=== PATIENT | male | born 1955 | race Caucasian/White ===

== ENCOUNTER → 2016-06-25 | Outpatient (CLI) | payer BC ==
[~2016-06-25] MED LIST: CPAP INH; NORCO 5-325 TA1 EACH PO; PRED FORTE 1%5 ML OPHTH
== END | disposition disaster alternative care site (69) ==
LOC: GRAD 08:20
DX: R10.9 Unspecified abdominal pain (principal); K82.8 Other specified diseases of gallbladder; K76.0 Fatty (change of) liver, not elsewhere classified; K86.89 Other specified diseases of pancreas

== ENCOUNTER → 2016-07-13 | Day surgery (SDC) | payer BC ==
[~2016-07-13] VITALS: Ht 175.3 cm; Wt 88.9 kg
--- NOTE | ~2016-07-13 | OR ---
PATIENT'S NAME: PETE [facility]AN [facility] AGE: 61 Y [address] ROOM: [place] [address] [place] [facility] [place]: 07/13/2016 OR/Procedure Report DISCHARGE DATE: FAMILY PHYSICIAN: Chavez Montano MD ATTENDING PHYSICIAN: Gary Childers SURGEON: Gary Childers MD PHILOSOPHY LECTURER: Mini Reynoso PA-C DATE OF PROCEDURE: 07/13/2016 PREOPERATIVE DIAGNOSIS: Cholelithiasis with chronic cholecystitis. POSTOPERATIVE DIAGNOSIS: Cholelithiasis with chronic cholecystitis. PROCEDURE PERFORMED: Robotic-assisted laparoscopic cholecystectomy. ANESTHESIA: General endotracheal. ESTIMATED BLOOD LOSS: Less than 10 mL. SPECIMEN: Gallbladder. REASON/INDICATION FOR PROCEDURE: The patient is a 61-year-old gentleman who recently presented with some fairly constant discomfort along the right side of his abdomen. He was found to have cholelithiasis with a very thick walled gallbladder. We discussed the risks and benefits of surgery. He elected to proceed with cholecystectomy. FINDINGS: The patient had chronic fatty infiltration of the gallbladder wall, some small stones were identified. The procedure was uneventful. PROCEDURE IN DETAIL: The patient was taken to the operating suite and placed in the supine position. After general endotracheal anesthesia was obtained, the abdomen was prepped with ChloraPrep and sterilely draped. Marcaine was infiltrated into the incision sites. A 1 cm incision was made below the umbilicus to stay away from his previous hernia repair. The fascia was then grasped and elevated, and a Veress needle was used to obtain a pneumoperitoneum. An 8-mm robotic trocar was then advanced across the abdominal wall. Next, three other 8-mm robotic trocars were placed under direct visualization. The robot was then docked to the trocars and centered on the gallbladder. The gallbladder was noted to be quite thick walled with considerable fatty infiltration. We dissected through the neck area of the gallbladder. The cystic artery was initially identified and stapled before dividing it with the cautery. We then skeletonized up the cystic duct that was normal in size. Hem-o-Eugenio clips were placed proximally and distally on the gallbladder and it was then transected with scissors. The gallbladder was PATIENT'S NAME: PETE IVAN [facility] AGE: 61 Y [address] ROOM: [place], [place] [address] [place] [facility] [place]: 07/13/2016 OR/Procedure Report DISCHARGE DATE: FAMILY PHYSICIAN: Chavez Montano MD ATTENDING PHYSICIAN: Gary Childers then used to mobilize the gallbladder free of the liver bed. Once fully mobilized, the gallbladder was removed from the umbilical opening. There were no signs of any ongoing bleeding or bile leak. The abdomen was scanned. No other obvious abnormalities were seen. He did have some adhesions up to the midline from his previous umbilical hernia repair. The trocars were all withdrawn and the pneumoperitoneum was evacuated. The fascia at the umbilicus was closed with a Vicryl [id number] suture. The skin incisions were all closed with subcuticular Monocryl. Benzoin, Steri-Strips, and gauze dressings were applied. POSTPROCEDURE PLAN: The patient will be sent to recovery and discharged to home when awake and alert. He is given prescription for Foristell for pain control. We will see him back in the office in a couple weeks. He is to call sooner if any problems. MD Veronica CENTENOTM/amandal /[id number] d: 07/13/16 1907 t: 07/21/16 1053, OPERATIVE SUMMARY
[2016-07-13 10:38] LABS: BILIRUBIN URINE NEGATIVE (NEGATIVE); BLOOD URINE 25 /UL (NEGATIVE); COLOR URINE YELLOW (YELLOW); GLUCOSE URINE NEGATIVE (NEGATIVE); KETONE URINE NEGATIVE (NEGATIVE); LEUKOCYTES URINE 25 /UL (NEGATIVE); NITRITE URINE NEGATIVE (NEGATIVE); PROTEIN URINE NEGATIVE (NEGATIVE); SPEC GRAVITY URINE 1.025 (1.003-1.035); TURBIDITY URINE CLEAR (CLEAR); UROBILINOGEN URINE NORMAL (NORMAL)
[2016-07-13 10:45] LABS: BACTERIA URINE NEGATIVE (NEGATIVE); EPITHELIAL URINE RARE #/HPF (NEGATIVE)
== END | disposition disaster alternative care site (69) ==
LOC: GPOC 07-09 14:00 → GSDC 08:50
PROVIDERS: Surgery
PROC: 0FT44ZZ Resection of Gallbladder, Percutaneous Endoscopic Approach (ICD-10-PCS; principal; 2016-07-13)
PROC: 8E0W8CZ Robotic Assisted Procedure of Trunk Region, Via Natural or Artificial Opening Endoscopic (ICD-10-PCS; 2016-07-13)
DX: K81.1 Chronic cholecystitis (principal); E87.6 Hypokalemia; E87.1 Hypo-osmolality and hyponatremia; E11.9 Type 2 diabetes mellitus without complications; G47.33 Obstructive sleep apnea (adult) (pediatric); F17.200 Nicotine dependence, unspecified, uncomplicated; Z98.52 Vasectomy status; Z98.890 Other specified postprocedural states
CPT/HCPCS: J0694; J1100; J2001; J2405; J7030